=== PATIENT | female | born 1985 | race African-American/Black ===

== ENCOUNTER 2018-05-29 13:23 | Inpatient (IN) | payer OTHER ==
--- NOTE | 2018-05-29 14:32 | HP ---
Past Medical History - Primary Care Physician PCP:: Jose Manuel Arthur - Admission Chief Complaint: sterlization History of Present Illness: 32 yo f requesting tubal ligation , aware procedure is permanent, and has small failure risks , risks of ectopic , and not reversiable, also risks of procedure discussed History Source: Patient Limitations to Obtaining History: No Limitations - Past Medical History ...: 2 ...Para: 2 - Past Surgical History Hx Myomectomy: No Hx Transabdominal Cerclage: No - Smoking History Smoking history: Never smoked Have you smoked in the past 12 months: No - Alcohol/Substance Use Hx Alcohol Use: No - Social History History of Recent Travel: No Home Medications - Allergies Allergies/Adverse Reactions: Allergies Allergy/AdvReac Type Severity Reaction Status Date / Time Penicillins Allergy Intermediate Rash Verified 11/23/13 14:30 - Home Medications Home Medications: Ambulatory Orders Vitamins (Sjr) - 1 tab PO DAILY #0 tablet 02/21/15 Review of Systems - Review of Systems Constitutional: reports: No Symptoms Eyes: reports: No Symptoms HENT: reports: No Symptoms Neck: reports: No Symptoms Cardiovascular: reports: No Symptoms Respiratory: reports: No Symptoms Gastrointestinal: reports: No Symptoms Genitourinary: reports: No Symptoms Breasts: reports: No Symptoms Reported Integumentary: reports: No Symptoms Neurological: reports: No Symptoms Endocrine: reports: No Symptoms Hematology/Lymphatic: reports: No Symptoms Psychiatric: reports: No Symptoms Physical Exam-IGNITION EXPERT Constitutional: Yes: Well Nourished, No Distress, Calm Eyes: Yes: WNL, Conjunctiva Clear, EOM Intact HENT: Yes: WNL, Atraumatic, Normocephalic Neck: Yes: WNL, Supple, Trachea Midline Cardiovascular: Yes: WNL, Regular Rate and Rhythm Respiratory: Yes: WNL, Regular, CTA Bilaterally Gastrointestinal: Yes: WNL ...Rectal Exam: Yes: WNL Renal/: Yes: WNL External Genitalia: Yes: Normal Vaginal Exam: Yes: Normal Cervix: Yes: Normal Uterus: Yes: Normal Adnexa: Not Palpable: Left, Right Breast(s): Yes: WNL Musculoskeletal: Yes: WNL Extremities: Yes: WNL Edema: No Integumentary: Yes: WNL Neurological: Yes: WNL, Alert, Oriented ...Motor Strength: WNL Psychiatric: Yes: WNL, Alert, Oriented Problem List - Problem (1) Admission for sterilization Code(s): Z30.2 - ENCOUNTER FOR STERILIZATION Assessment/Plan laparoscpic tubal fulgration
[2018-05-29 16:05] VITALS: BMI 57.2
[2018-05-29] MEDS ORDERED: CLINDAMYCIN PHOSPHATE 600 MG/4 ML VIAL ONE ×2 (16:10→21:46)
[2018-05-29] MEDS ORDERED: DEXTROSE 5%-LACTATED RINGERS 1,000 ML IV SCH (16:15)
[2018-05-29] MEDS ORDERED: BUTORPHANOL TARTRATE 1 MG/ML VIAL IVPUSH ONE (16:15)
[2018-05-29] MEDS ORDERED: PROMETHAZINE HCL 25 MG/1 ML VIAL IVPB ONE (16:15)
[2018-05-29] MEDS: CLINDAMYCIN 900 MG PREMIX IVPB 900 MG/50 ML BAG IVPB ONE ×2 (16:20→16:30)
[2018-05-29] MEDS ORDERED: PROMETHAZINE HCL 25 MG/1 ML VIAL ONE ×2 (16:21→23:16)
[2018-05-29] MEDS ORDERED: BUTORPHANOL TARTRATE 1 MG/ML VIAL ONE ×4 (16:21→23:16)
--- NOTE | 2018-05-29 16:24 | HP ---
Past Medical History - Primary Care Physician PCP:: Jose Manuel Arthur - Admission Chief Complaint: post date for cervidil induction History of Present Illness: 32 yo f g6 p 3023 40.3 weeks, admitted for cervidil induction,Risks discussed , cx 1 cm 50 vx -3 mi, fhr cat 1, History Source: Patient Limitations to Obtaining History: No Limitations - Past Medical History ...: 6 ...Para: 3 ...Term: 3 ...: 1 ...Spon : 1 ...Induced : 0 ...Multiple Gestation: 0 ...LMP: 08/19/17 ... Weeks Gestation by Dates: 40.3 ...EDC by Dates: 05/26/18 ...EDC by Sono: 05/26/18 - Past Surgical History Hx Myomectomy: No Hx Transabdominal Cerclage: No - Smoking History Smoking history: Never smoked Have you smoked in the past 12 months: No - Alcohol/Substance Use Hx Alcohol Use: No - Social History History of Recent Travel: No Home Medications - Allergies Allergies/Adverse Reactions: Allergies Allergy/AdvReac Type Severity Reaction Status Date / Time Penicillins Allergy Intermediate Rash Verified 11/23/13 14:30 - Home Medications Home Medications: Ambulatory Orders Vitamins (Sjr) - 1 tab PO DAILY #0 tablet 02/21/15 Review of Systems - Review of Systems Constitutional: reports: No Symptoms Eyes: reports: No Symptoms HENT: reports: No Symptoms Neck: reports: No Symptoms Cardiovascular: reports: No Symptoms Respiratory: reports: No Symptoms Gastrointestinal: reports: No Symptoms Genitourinary: reports: No Symptoms Breasts: reports: No Symptoms Reported Musculoskeletal: reports: No Symptoms Integumentary: reports: No Symptoms Neurological: reports: No Symptoms Endocrine: reports: No Symptoms Hematology/Lymphatic: reports: No Symptoms Psychiatric: reports: No Symptoms Physical Exam - Maternity Vital Signs: Vital Signs Temperature 97.8 F 05/29/18 14:45 Pulse Rate 79 05/29/18 14:45 Respiratory Rate 17 05/29/18 14:45 Blood Pressure 122/62 05/29/18 14:45 O2 Sat by Pulse Oximetry (%) Constitutional: Yes: Well Nourished, No Distress, Calm Eyes: Yes: WNL, Conjunctiva Clear, EOM Intact HENT: Yes: WNL, Atraumatic, Normocephalic Neck: Yes: WNL, Supple, Trachea Midline Cardiovascular: Yes: WNL, Regular Rate and Rhythm Breast(s): Yes: WNL - Abdominal Exam/OB Fundal Height: 40 Number of Fetuses: Single Presentation: Vertex Contractions: No Intensity: Unaware Monitor Mode: External Heart Rate Location: [facility] Category: I Accelerations: Uniform - Vaginal Exam/OB Vaginal Bleediing: No Speculum Exam: No Dilatation (cm): 1 cm Effacement (%): 50 Amniotic Membrane Status: Intact Presentation: Vertex/Position Station: -3 - Physical Exam Edema: LUE: Trace, RUE: Trace, LLE: 1+, RLE: 1+ Deep Tendon Reflex Grade: Normal +2 ...Motor Strength: WNL Psychiatric: Yes: WNL Hemorrhage Risk Assessment - Risk Factors Medium Risk Factors: Yes: Obesity (BMI >40) Risk Score: 1 Risk Level: Medium Risk Problem List - Problems (1) Admission for sterilization Code(s): Z30.2 - ENCOUNTER FOR STERILIZATION (2) Post term over 40 weeks Code(s): O48.0 - POST-TERM (3) Elective induction of labor planned Code(s): [id number] - (4) Morbid obesity Code(s): E66.01 - MORBID (SEVERE) OBESITY DUE TO EXCESS CALORIES Assessment/Plan admit, fh monitoring, DVT prophylaxis, cervidil induction
[2018-05-29 17:29] LABS: BASO % 0.2 % (0-2.0); EOS % 0.8 % (0-4.5); HEMATOCRIT 38.2 % (32.4-45.2); HEMOGLOBIN 12.7 GM/dL (10.7-15.3); LYMPH % 22.4 % (8-40); MCH 29.2 pg (25.7-33.7); MCHC 33.1 g/dl (32.0-36.0); MEAN CELL VOLUME 88.3 fl (80-96); MEAN PLT VOLUME 11.8 fl (7.5-11.1); MONO % 5.3 % (3.8-10.2); NEUT % 71.3 % (42.8-82.8); PLATELET COUNT 177 K/MM3 (134-434); RBC 4.33 M/mm3 (3.60-5.2); RDW 13.3 % (11.6-15.6); RETICULOCYTES 2.15 % (0.5-1.5); WHITE BLOOD COUNT 11.6 K/mm3 (4.0-10.0)
[2018-05-29 17:48] LABS: INR 0.96 (0.83-1.09); PROTHROMBIN TIME (PATIENT) 10.9 SEC (9.7-13.0)
[2018-05-29 17:51] LABS: ACTIVATED PTT 22.6 SECONDS (25.2-36.5)
[2018-05-29 18:02] LABS: ALBUMIN 2.9 g/dl (3.4-5.0); CALCIUM 9.6 mg/dL (8.5-10.1); CHLORIDE 106 mmol/L (98-107); SODIUM 139 mmol/L (136-145)
[2018-05-29 18:07] LABS: ALK PHOS 104 U/L (45-117); ANION GAP 11 (8-16); BILIRUBIN,TOTAL 0.3 mg/dL (0.2-1.0); BLOOD UREA NITROGEN 8 mg/dL (7-18); CO2 22 mmol/L (21-32); CREATININE 0.5 mg/dL (0.55-1.02); GAMMA GLUTAMYL TRANSPEPTIDASE 38 U/L (5-85); GLUCOSE,RANDOM 74 mg/dL (74-106); SGOT/AST 18 U/L (15-37); SGPT/ALT 22 U/L (12-78); TOT PROT 6.9 g/dl (6.4-8.2)
[2018-05-29] MEDS: CLINDAMYCIN 600MG PREMIX IVPB 600 MG/50 ML BAG IVPB SCH (21:30)
[2018-05-29] MEDS ORDERED: OXYTOCIN 30 UNITS in 0.9% NS 30 UNIT/500 ML INFUS.BAG IVPB SCH (21:45)
--- NOTE | 2018-05-29 21:45 | PN ---
Progress Note (short form) - Note Progress Note: cx 3 cm 80 vx -2, fhr cat 1, irregular contraction , cervidil removed , will start pitocin Problem List - Problems (1) Admission for sterilization Code(s): Z30.2 - ENCOUNTER FOR STERILIZATION (2) Post term over 40 weeks Code(s): O48.0 - POST-TERM (3) Elective induction of labor planned Code(s): [id number] - (4) Morbid obesity Code(s): E66.01 - MORBID (SEVERE) OBESITY DUE TO EXCESS CALORIES
[2018-05-29] MEDS ORDERED: BUTORPHANOL TARTRATE 1 MG/ML VIAL IVPUSH PRN (21:47)
[2018-05-29] MEDS ORDERED: OXYTOCIN 30 UNITS in 0.9% NS 30 UNIT/500 ML INFUS.BAG IVPB ONE (21:47)
[2018-05-29] MEDS ORDERED: PROMETHAZINE HCL 25 MG/1 ML VIAL IVPUSH ONE (21:47)
[2018-05-29 22:03] LABS: URINE APPEARANCE SLCLOUDY; URINE BILIRUBIN NEGATIVE (<2.0 mg/dL); URINE COLOR DKYELLOW; URINE GLUCOSE (UA) NEGATIVE (NEGATIVE); URINE KETONE 1+ (NEGATIVE); URINE LEUK ESTERASE NEGATIVE (NEGATIVE); URINE NITRITE NEGATIVE (NEGATIVE); URINE UROBILINOGEN NEGATIVE mg/dL (0.2-1.0)
[2018-05-29 22:07] LABS: URINE PROTEIN 1+ (NEGATIVE)
[2018-05-29 22:09] LABS: EPI CELLS RARE /HPF (FEW); URINE BACTERIA RARE /hpf (NONE SEEN); URINE MUCUS FEW
--- NOTE | 2018-05-30 02:22 | PN ---
Progress Note (short form) - Note Progress Note: cx 5 cm 80 vx -2 mi, fhr cat1, arom ,cler fluid Problem List - Problems (1) Admission for sterilization Code(s): Z30.2 - ENCOUNTER FOR STERILIZATION (2) Post term over 40 weeks Code(s): O48.0 - POST-TERM (3) Elective induction of labor planned Code(s): [id number] - (4) Morbid obesity Code(s): E66.01 - MORBID (SEVERE) OBESITY DUE TO EXCESS CALORIES
[2018-05-30] MEDS ORDERED: CLINDAMYCIN PHOSPHATE 600 MG/4 ML VIAL ONE (02:51)
[2018-05-30] MEDS ORDERED: PROMETHAZINE HCL 25 MG/1 ML VIAL ONE (02:52)
[2018-05-30] MEDS ORDERED: BUTORPHANOL TARTRATE 1 MG/ML VIAL ONE ×2 (02:52)
[2018-05-30] MEDS ORDERED: BUTORPHANOL TARTRATE 1 MG/ML VIAL IVPB ONE (03:00)
[2018-05-30] MEDS: CLINDAMYCIN 600MG PREMIX IVPB 600 MG/50 ML BAG IVPB SCH (03:00)
[2018-05-30] MEDS ORDERED: PROMETHAZINE HCL 25 MG/1 ML VIAL IVPB ONE (03:00)
[2018-05-30] MEDS ORDERED: OXYTOCIN 20 UNITS in 0.9% NS 20 UNIT/1,000 ML INFUS.BAG IV ONE ×2 (04:28→06:00)
[2018-05-30] MEDS ORDERED: LIDOCAINE HCL 1% PRESERVATIVE FREE - 30ML VIAL ONE (04:29)
[2018-05-30] MEDS ORDERED: BENZOCAINE 20% 57 GM BOTTLE TP PRN (05:14)
[2018-05-30] MEDS ORDERED: WITCH HAZEL 50% (TUCKS) 40 PAD/JAR PAD TP PRN (05:14)
[2018-05-30] MEDS ORDERED: BENZOCAINE 28 GM HEMORRHOIDAL OINTMENT TP PRN (05:14)
[2018-05-30] MEDS ORDERED: METHYLERGONOVINE MALEATE 0.2 MG/1 ML AMP IM PRN (05:14)
[2018-05-30] MEDS ORDERED: BISACODYL 10 MG SUPP.RECT RC PRN (05:14)
[2018-05-30] MEDS ORDERED: D5W-LR W/ 20 UNITS OXYTOCIN 20 UNIT/1,000 ML INFUS.BAG IV SCH (05:15)
[2018-05-30] MEDS ORDERED: OXYTOCIN 20 UNITS in 0.9% NS 20 UNIT/1,000 ML INFUS.BAG IV SCH (05:30)
[2018-05-30] MEDS: FERROUS SO4 325 MG TABLET (FP) PO SCH ×2 (08:10→16:48)
[2018-05-30] MEDS: IBUPROFEN 600 MG TABLET (FP) PO PRN ×3 (08:10→20:35)
[2018-05-30] MEDS: PRENATAL VITAMINS W/ FOLIC ACID TABLET (FP) PO SCH (09:34)
[2018-05-30] MEDS: ACETAMINOPHEN 325 MG TABLET (FP) PO PRN (20:35)
[2018-05-31 07:10] LABS: BASO % 0.6 % (0-2.0); EOS % 2.5 % (0-4.5); HEMATOCRIT 31.5 % (32.4-45.2); HEMOGLOBIN 10.8 GM/dL (10.7-15.3); LYMPH % 29.7 % (8-40); MCH 30.3 pg (25.7-33.7); MCHC 34.3 g/dl (32.0-36.0); MEAN CELL VOLUME 88.3 fl (80-96); MEAN PLT VOLUME 10.3 fl (7.5-11.1); MONO % 5.8 % (3.8-10.2); NEUT % 61.4 % (42.8-82.8); PLATELET COUNT 154 K/MM3 (134-434); RBC 3.57 M/mm3 (3.60-5.2); RDW 13.6 % (11.6-15.6); WHITE BLOOD COUNT 10.5 K/mm3 (4.0-10.0)
[2018-05-31] MEDS: FERROUS SO4 325 MG TABLET (FP) PO SCH ×2 (09:51→17:18)
[2018-05-31] MEDS: PRENATAL VITAMINS W/ FOLIC ACID TABLET (FP) PO SCH (09:51)
[2018-05-31] MEDS ORDERED: DIPHTH,PERTUSS(ACELL),TET 0.5 ML DISP.SYRIN IM ONE (10:00)
[2018-05-31] MEDS: IBUPROFEN 600 MG TABLET (FP) PO PRN ×2 (12:13→21:02)
--- NOTE | 2018-05-31 13:47 | PN ---
Post Progress Note Post Day: 1 Type of Delivery: Vital Signs: Vital Signs Temperature 98.3 F 05/31/18 08:10 Pulse Rate 80 05/31/18 08:10 Respiratory Rate 20 05/31/18 08:10 Blood Pressure 139/64 05/31/18 08:10 O2 Sat by Pulse Oximetry (%) 100 05/30/18 07:20 Breast Exam: Yes: Soft Uterus: Yes: Fundus Firm Abdomen/GI: Yes: Abdomen soft Lochia: Yes: Rubra Lochia, amount: Small Extremities: Yes: Calves non-tender Activity: Ambulating - Labs Labs: CBC WBC 10.5 K/mm3 (4.0-10.0) H 05/31/18 06:00 RBC 3.57 M/mm3 (3.60-5.2) L 05/31/18 06:00 Hgb 10.8 GM/dL (10.7-15.3) 05/31/18 06:00 Hct 31.5 % (32.4-45.2) L D 05/31/18 06:00 MCV 88.3 fl (80-96) 05/31/18 06:00 MCH 30.3 pg (25.7-33.7) 05/31/18 06:00 MCHC 34.3 g/dl (32.0-36.0) 05/31/18 06:00 RDW 13.6 % (11.6-15.6) 05/31/18 06:00 Plt Count 154 K/MM3 (134-434) 05/31/18 06:00 MPV 10.3 fl (7.5-11.1) D 05/31/18 06:00 Absolute Neuts (auto) 6.4 # 05/31/18 06:00 Neutrophils % 61.4 % (42.8-82.8) 05/31/18 06:00 Lymphocytes % 29.7 % (8-40) D 05/31/18 06:00 Monocytes % 5.8 % (3.8-10.2) 05/31/18 06:00 Eosinophils % 2.5 % (0-4.5) D 05/31/18 06:00 Basophils % 0.6 % (0-2.0) 05/31/18 06:00 Nucleated RBC % 0 % (0-0) 05/31/18 06:00 Retic Count 2.15 % (0.5-1.5) H 05/29/18 16:30 Haptoglobin 228 mg/dL (34-200) H 05/29/18 16:30 Problem List - Problems (1) Vaginal delivery Assessment/Plan: Pt PPD#1 s/p doing well breast and bottle feeding undecided about contraception NPV x 6 weeks vitamins while breast feeding advised to schedule pp visit in 4-6 weeks plan for discharge tomorrow if continues to do wel Dr. Rojas
[2018-05-31] MEDS: ACETAMINOPHEN 325 MG TABLET (FP) PO PRN (21:02)
[2018-05-31] MEDS ORDERED: SENNOSIDES/DOCUSATE COMBO (SENNA PLUS) TABLET (UD) PO PRN (22:00)
[2018-06-01 08:43] VITALS: BP 139/68; PULSE 85; TEMP 98.1
[2018-06-01] MEDS: FERROUS SO4 325 MG TABLET (FP) PO SCH (09:10)
[2018-06-01] MEDS: IBUPROFEN 600 MG TABLET (FP) PO PRN (09:10)
[2018-06-01] MEDS: PRENATAL VITAMINS W/ FOLIC ACID TABLET (FP) PO SCH (09:10)
--- NOTE | 2018-06-02 17:52 | DS ---
Physical Exam-CAST IRON DIPPER Vital Signs: Vital Signs Temperature 98.1 F 06/01/18 08:42 Pulse Rate 85 06/01/18 08:42 Respiratory Rate 20 06/01/18 08:42 Blood Pressure 139/68 06/01/18 08:42 O2 Sat by Pulse Oximetry (%) 100 05/30/18 07:20 Constitutional: Yes: Well Nourished, No Distress, Calm Eyes: Yes: WNL, Conjunctiva Clear, EOM Intact HENT: Yes: WNL, Atraumatic, Normocephalic Neck: Yes: WNL, Supple, Trachea Midline Cardiovascular: Yes: WNL, Regular Rate and Rhythm Respiratory: Yes: WNL, Regular, CTA Bilaterally Gastrointestinal: Yes: WNL ...Rectal Exam: Yes: WNL Renal/: Yes: WNL ....Post : Yes: Uterus firm, Uterus non-tender, Slight lochia rubra Breast(s): Yes: WNL Musculoskeletal: Yes: WNL Extremities: Yes: WNL Edema: No Integumentary: Yes: WNL Neurological: Yes: WNL, Alert, Oriented ...Motor Strength: WNL Psychiatric: Yes: WNL, Alert, Oriented Labs: CBC, BMP 05/31/18 06:00 05/29/18 16:30 Delivery - Delivery Vaginal Delivery: Spontaneous (no complication) Type of Anesthesia: None Episiotomy/Laceration: None EBL (cc): 300 Delivery, Single - Stages of Labor Date 1st Stage Initiatied: 05/29/18 Time 1st Stage Initiated: 16:50 Date 2nd Stage Initiated: 05/30/18 Time 2nd Stage Initiated: 04:45 Date of Delivery: 05/30/18 Time of Delivery: 05:01 Time Placenta Delivered: 05:10 Placenta: Yes: Spontaneous - Condition of Infant Bicycle Rental Clerk/Patents Examiner Present: No Infant Gender: Female Weight: 7 lb 5 oz Position: Left, OA Total Hours ROM (Hrs/Mins): 2 HOURS/ 51 MINUTES - 1 Minute Total Score: 9 5 Minutes Total Score: 9 - Blue Feeding Plan Initial Plan: Exclusive throughout hospitalization Discharge Summary Reason For Visit: INDUCTION Procedures: Principal: Hospital Course: no complication Condition: Good - Instructions Diet, Activity, Other Instructions: Physical activity Resume your normal everyday activity as tolerated no heavy lifting or exercise until seen by your surgeon. You may walk unlimited kristy of and climb stairs. You may resume driving the car when you feel safe and comfortable behind the wheel. No sexual activity as instructed. Wound care If you have a bandage, leave it on, and keep dry for 48-72 hours. After that time discard the outer bandage. If they are tapes on the skin under the out of bandage leave them in place. They will peel off in the next 7 to 10 days. Do Not Peel them off. You may shower the day after surgery. If there are tapes present on the skin, you may shower over them. Diet There are no dietary restrictions. Eat healthy, high-fiber foods. Drink 6 to 8 glasses of liquid each day. This will assist in keeping your bowels are regular. Pain management You may take Tylenol or acetaminophen or Ibuprofen (for example, Motrin, Advil etc.) from my pain prescription medication is ordered should be taken as prescribed for moderate to severe pain. Call MD for any of the following: Severe pain not relieved by medication Fever of 101 or higher Excessive bleeding or drainage on dressing Inability to urinate Referrals: [facility] (Nitza Carrera) [Outside] Disposition: HOME - Home Medications Comprehensive Discharge Medication List: Ambulatory Orders Vitamins (Sjr) - 1 tab PO DAILY #0 tablet 02/21/15 Ferrous Sulfate 325 mg PO DAILY 05/29/18 Ibuprofen [Ibu] 800 mg PO TID PRN 10 Days #40 tablet 05/31/18
== END 2018-06-01 11:45 | disposition home or self-care (01) | DRG 560 ==
LOC: JDEL 13:23 → JLDR 14:45 → J3W 05-30 08:02
PROVIDERS: ADMIT Obstetrics & Gynecology; ATTEND Obstetrics & Gynecology
PROC: 3E0P7VZ Introduction of Hormone into Female Reproductive, Via Natural or Artificial Opening (ICD-10-PCS; 2018-05-29)
PROC: 10E0XZZ Delivery of Products of Conception, External Approach (ICD-10-PCS; principal; 2018-05-30)
DX: O48.0 Post-term pregnancy (principal); Z3A.40 40 weeks gestation of pregnancy; O99.214 Obesity complicating childbirth; E66.01 Morbid (severe) obesity due to excess calories; Z68.43 Body mass index [BMI] 50.0-59.9, adult; Z37.0 Single live birth
CPT/HCPCS: 36415; 59409; 80053; 81003; 81015; 82977; 83010; 84550; 85025; 85044; 85610; 85730; 86593; 86850; 86900; 86901; 90715

== ENCOUNTER 2019-12-14 14:15 | Inpatient (IN) | payer OTHER ==
[2019-12-14] MEDS: ELECTROLYTE-148 SOLN 1,000 ML IV SCH (14:50)
[2019-12-14] MEDS ORDERED: hydrALAZINE HCL 20 MG/ML VIAL ONE (15:17)
[2019-12-14] MEDS ORDERED: hydrALAZINE HCL 20 MG/ML VIAL IVPUSH ONE (15:20)
[2019-12-14 15:25] VITALS: BMI 58.2
[2019-12-14] MEDS ORDERED: OXYTOCIN 20 UNITS in 0.9% NS 20 UNIT/1,000 ML INFUS.BAG IV ONE ×2 (15:39→16:56)
[2019-12-14] MEDS ORDERED: morphine SULFATE/PF 0.5 MG/ML (2cc Syringe - QUVA) ONE (15:40)
--- NOTE | 2019-12-14 15:40 | PN ---
Progress Note (short form) - Note Progress Note: Stat section approximately 5-10mins ago
[2019-12-14] MEDS ORDERED: PROPOFOL 20 ML ONE ×2 (15:45)
[2019-12-14] MEDS ORDERED: OXYTOCIN 10 UNITS/ML VIAL ONE (15:51)
[2019-12-14 16:06] LABS: BASO % 0.9 % (0-2.0); EOS % 0.6 % (0-4.5); HEMATOCRIT 39.6 % (32.4-45.2); HEMOGLOBIN 12.9 GM/dL (10.7-15.3); LYMPH % 17.9 % (8-40); MCH 29.8 pg (25.7-33.7); MCHC 32.6 g/dl (32.0-36.0); MEAN CELL VOLUME 91.5 fl (80-96); MEAN PLT VOLUME 11.7 fl (7.5-11.1); MONO % 7.2 % (3.8-10.2); NEUT % 73.4 % (42.8-82.8); PLATELET COUNT 179 K/MM3 (134-434); RBC 4.33 M/mm3 (3.60-5.2); RDW 13.5 % (11.6-15.6); RETICULOCYTES 1.77 % (0.5-1.5); WHITE BLOOD COUNT 18.9 K/mm3 (4.0-10.0)
[2019-12-14 16:30] LABS: BLOOD UREA NITROGEN 4.7 mg/dL (7-18); CALCIUM 9.4 mg/dL (8.5-10.1); CREATININE 0.6 mg/dL (0.55-1.3); POTASSIUM 4.1 mmol/L (3.5-5.1); URIC ACID 4.4 mg/dL (2.6-7.2)
[2019-12-14 16:43] LABS: INR 0.91 (0.83-1.09); PROTHROMBIN TIME (PATIENT) 10.7 SEC (9.7-13.0)
[2019-12-14 16:46] LABS: ACTIVATED PTT 27.6 SECONDS (25.2-36.5)
[2019-12-14] MEDS ORDERED: CITRIC ACID/SODIUM CITRATE 30 ML UNIT-DOSE CUP PO ONE ×2 (16:46→17:05)
--- NOTE | 2019-12-14 16:51 | HP ---
Past Medical History - Primary Care Physician PCP:: Abdullahi Culp (late entry) - Admission Chief Complaint: Labor pain History of Present Illness: Patient is a chornic hypertensive on PO antihypertensive who presents with labor pains that started at 6am today and progressively worsened. BP was labile in mild to sever range. She denies LOF, VB, and reports +FM. Patient reports nausea and denies VALENCIA, vision changes, CP, SOB, leg swelling, and RUQ pain History Source: Patient Limitations to Obtaining History: No Limitations - Past Medical History DOCENT COORDINATOR: No: Alzheimer's, CVA, Dementia, Migraine, Multiple Sclerosis, Peripheral Neuropathy, Parkinson's, Seizure, Syncope, TIA, Vertigo, Other Cardiovascular: Yes: HTN Pulmonary: No: Asthma, Bronchitis, Cancer, COPD, O2 Dependent, Pneumonia, Previously Intubated, Pulmonary Embolus, Pulmonary Fibrosis, Sleep Apnea, Other Gastrointestinal: Yes: Ulcerative Colitis Hepatobiliary: No: Cirrhosis, Cholelithiasis, Cholecystitis, Choledocholithiasis , Hepatitis A, Hepatitis B, Hepatitis C, Other Renal/: No: Renal Failure, Renal Inusuff, BPH, Cancer, Hematuria, Hemodialysis , Neurogenic Bladder, Renal Calculi, UTI, Other Reproductive: No: Ectopic , Endometriosis, Fibroids, PID, Polycystic Ovary Syndrome, Postmenopausal, Other ...: 7 ...Para: 5 ...Term: 4 ...: 1 ...Spon : 1 ...Induced : 0 ...Multiple Gestation: 0 ...LMP: 03/05/19 ... Weeks Gestation by Dates: 40.4 ...EDC by Dates: 12/10/19 ...EDC by Sono: 12/20/19 Heme/Onc: No: Anemia, B12 Deficiency, Bleeding Disorder, Cancer, Current Chemotherapy, Current Radiation Therapy, Hemochromatosis, Hypercoaguable State, Myeloproliferative Synd, Sickle Cell Disease, Sickle Cell Trait, Thrombocytopenia, Other Infectious Disease: Yes: Other (H/O herpes) Psych: No: Addictions, Anxiety, Bipolar, Depression, Panic, Psychosis, Schizophrenia, Other Musculoskeletal: No: Bursitis, Chronic low back pain, Hemiparesis, Hemiplegia, Osteoarthritis, Paraplegia, Other Rheumatology: No: Fibromyalgia, Gout, Lupus, Rheumatoid Arthritis, Sarcoidosis, Vasculitis, Other ENT: No: Allergic Rhinitis, Sinusitis, Other Endocrine: No: Luigi's Disease, [place]'s Disease, Diabetes Insipidus, Diabetes Mellitus, Hyperparathyroidism, Hyperthyroidism, Hypothyroidism, Osteopenia, SIADH, Other Dermatology: No: Basal Cell, Cellulitis, Eczema, Melanoma, Psoriasis, Squamous Cell, Other - Past Surgical History Past Surgical History: Yes: Cholecystectomy Hx Myomectomy: No Hx Transabdominal Cerclage: No - Smoking History Smoking history: Never smoked Have you smoked in the past 12 months: No - Alcohol/Substance Use Hx Alcohol Use: No - Social History History of Recent Travel: No Home Medications - Allergies Allergies/Adverse Reactions: Allergies Allergy/AdvReac Type Severity Reaction Status Date / Time Penicillins Allergy Intermediate Hives Verified 12/14/19 17:17 - Home Medications Home Medications: Ambulatory Orders Vitamins (Sjr) - 1 tab PO DAILY #0 tablet 02/21/15 Ferrous Sulfate 325 mg PO DAILY 05/29/18 Nifedipine [Procardia Xl] 30 mg PO DAILY 12/14/19 Valacyclovir HCl [Valtrex] 500 mg PO BID 12/14/19 Family Medical History Family History: Unable to Obtain Review of Systems - Review of Systems Constitutional: reports: No Symptoms Eyes: reports: No Symptoms HENT: reports: No Symptoms Neck: reports: No Symptoms Cardiovascular: reports: No Symptoms Respiratory: reports: No Symptoms Gastrointestinal: reports: Nausea Genitourinary: reports: No Symptoms Breasts: reports: No Symptoms Reported Musculoskeletal: reports: No Symptoms Integumentary: reports: No Symptoms Neurological: reports: No Symptoms Endocrine: reports: No Symptoms Hematology/Lymphatic: reports: No Symptoms Psychiatric: reports: No Symptoms Physical Exam - Maternity Vital Signs: Vital Signs Temperature 98.1 F 12/14/19 15:01 Pulse Rate 117 H 12/14/19 15:01 Respiratory Rate 12/14/19 15:01 Blood Pressure 148/99 12/14/19 15:01 O2 Sat by Pulse Oximetry (%) Constitutional: Yes: Well Nourished, Mild Distress (due to labor pain) HENT: Yes: Atraumatic Neck: Yes: Supple Cardiovascular: Yes: Tachycardia - Abdominal Exam/OB Number of Fetuses: Single Presentation: Vertex Contractions: Yes Regularity: Regular Monitor Mode: Internal Heart Rate (range): 140 Category: II Accelerations: Uniform (moderate variability present) Decelerations: Late (2 subtle) - Vaginal Exam/OB Vaginal Bleediing: No Speculum Exam: Yes (no lesions, no blood noted) Dilatation (cm): 6 Effacement (%): 70 Amniotic Membrane Status: Intact Presentation: Vertex/Position Station: -3 - Physical Exam Musculoskeletal: Yes: WNL Extremities: Yes: WNL Edema: Yes Edema: LLE: Trace, RLE: Trace Integumentary: Yes: WNL Deep Tendon Reflex Grade: Normal +2 ...Motor Strength: WNL Psychiatric: Yes: Alert, Oriented - Labs Lab Results: CBC, BMP 12/14/19 15:30 12/14/19 15:30 Imaging - Results Ultrasound: Report Reviewed Problem List - Problems (1) Hypertension affecting in third trimester Code(s): O16.3 - UNSPECIFIED MATERNAL HYPERTENSION, THIRD TRIMESTER (2) Morbid obesity Code(s): E66.01 - MORBID (SEVERE) OBESITY DUE TO EXCESS CALORIES (3) distress Code(s): [id number] - Assessment/Plan 34 y/o @ 39.3 wks presenting with labor pain since 6am today that has progressively worsened. BP in severe range with FHT cat II with 2 initial late decels and moderate variability. Patient is morbidly obese and FSE placed at 3: 05 PM due to inability to monitored continuously. AROM revealed thick meconium stained amniotic fluid. Patient requested pain control. -Admission -Stat PEc labs -Continuous monitoring - IV antihypertensive -NICU and anesthesia made aware
[2019-12-14] MEDS: OXYTOCIN 20 UNITS in 0.9% NS 20 UNIT/1,000 ML INFUS.BAG IV SCH (17:15)
[2019-12-14] MEDS ORDERED: ONDANSETRON 4 MG/2 ML VIAL IVPUSH PRN (17:27)
[2019-12-14 18:02] LABS: COCAINE, UR NEGATIVE ng/ml (CUTOFF=300); METHADONE, UR NEGATIVE ng/ml (CUTOFF=300); OPIATES, URI NEGATIVE ng/ml (CUTOFF=300); PHENCYCLIDINE,URINE NEGATIVE ng/ml (CUTOFF=25); URINE AMPHETAMINES NEGATIVE ng/ml (CUTOFF=500); URINE BARBITURATES NEGATIVE ng/ml (CUTOFF=200); URINE BENZODIAZEPINES NEGATIVE ng/ml (CUTOFF=200)
--- NOTE | 2019-12-14 18:44 | PN ---
Ante-Partal Exam - Subjective Subjective: Late entry: Patient re-evaluated for prolonged decelerations for approximately 4 mins down to 80's shortly after AROM performed. Vital Signs: Vital Signs Temperature 98.5 F 12/14/19 16:50 Pulse Rate 104 H 12/14/19 17:30 Respiratory Rate 23 H 12/14/19 17:30 Blood Pressure 132/54 L 12/14/19 17:30 O2 Sat by Pulse Oximetry (%) 99 12/14/19 17:30 BP in severe range Bleeding: No Headache: No Visual changes: No Right upper quadrant pain: No - Contractions Contractions: Yes Regularity: Regular Monitor Mode: External - Exam during Labor Heart Rate: 80 (recovered with intrauterine resucitation efforts) Variability: Minimal Category: II Monitor Accelerations: Present Monitor Decelerations: Prolonged Exam: Vaginal Dilatation (cm): 6 Effacement (%): 7- Amniotic Membrane Status: Ruptured Amniotic Fluid: Meconium Stained Meconium Staining: Thick Presentation: Vertex Station: -3 Remarks: FSE in place - Assessment/Plan Assessment/Plan: 34 y/o @ 39.3wks, no OB CHTN, severe HTN and FHT cat II, S/P prolonged decel and FSE in place. FHT recovered with intrauterine resuscitation efforts. Patient counseled at bedside regarding situation. Need for IV antihypertensive explained and discussion regarding VD vs CD carried out. Patient desires a trial of labor. She expressed understanding regarding the possibility of worsening status an need for emergent CD with this decision. -IV hydralazine 5mg administered at 3:20pm -Continuous monitoring -OR staff, NICU and anesthesia aware of situation -Labs pending.
[2019-12-14] MEDS ORDERED: oxyCODONE HCL 5 MG TABLET PO PRN (19:08)
[2019-12-14] MEDS: IBUPROFEN 800 MG/8 ML IJ IVPB PRN (19:15)
--- NOTE | 2019-12-14 19:24 | PN ---
Progress Note (short form) - Note Progress Note: Late entry: Patient evaluated for prolonged deceleration for approximately 7 minutes that recovered to 150's with intrauterine resuscitation. BP still in the severe range despite IV antihypertensive. Cervical exam 8/80/-3, FSE in place remote form delivery. Patient counseled regarding Emergent stat CS following FHT recovery. Patient was brought to the OR expeditiously. Problem List - Problems (1) Hypertension affecting in third trimester Code(s): O16.3 - UNSPECIFIED MATERNAL HYPERTENSION, THIRD TRIMESTER (2) Morbid obesity Code(s): E66.01 - MORBID (SEVERE) OBESITY DUE TO EXCESS CALORIES (3) distress Code(s): [id number] -
--- NOTE | 2019-12-14 19:38 | OP ---
Operative Note - Note: Operative Date: 12/14/19 (dic# [id number]) Pre-Operative Diagnosis: 34 y/o multiparous female @ 39.3wks, CHTN exacerbation with severe range BP, distress, remote from delivery Operation: Emergent PTLCS Findings: see dictation Post-Operative Diagnosis: Same as Pre-op Surgeon: Abdullahi Culp Joiner Helper: Jv Simpson Anesthesia: Spinal Estimated Blood Loss (mls): 900 Operative Report Dictated: Yes
[2019-12-14] MEDS ORDERED: morphine SULFATE 4 MG/ML VIAL IVPUSH PRN (19:40)
[2019-12-14] MEDS: HEPARIN NA (PORCINE) 5,000 UNITS/ML 1ML VIAL SQ SCH (22:09)
[2019-12-14] MEDS: CEFAZOLIN 1 GM/D5W 1 GM/50 ML BAG IVPB SCH (23:22)
--- NOTE | 2019-12-15 00:31 | OP ---
DATE OF OPERATION: 12/14/2019 PREOPERATIVE DIAGNOSIS: This is a 34-year-old grand multiparous female at 39 weeks and 3 days of gestation, chronic hypertensive with exacerbation, blood pressure in the severe range, distress, remote from delivery. POSTOPERATIVE DIAGNOSIS: This is a 34-year-old grand multiparous female at 39 weeks and 3 days of gestation, chronic hypertensive with exacerbation, blood pressure in the severe range, distress, remote from delivery. PROCEDURE: Emergent stat section. SURGEON: Dean Vieyra MD. PATIENT OBSERVATION ASSISTANT: NANDO Matamoros. ANESTHESIA: Spinal. ESTIMATED BLOOD LOSS: Per the facility. INTRAVENOUS FLUIDS: 900 mL of crystalloid. URINE OUTPUT: Clear. INTRAVENOUS: Per Anesthesia. COMPLICATIONS: Cervical uterine extension posteriorly. INTRAOPERATIVE FINDINGS: Morbidly obese patient with pronounced pannus and subcutaneous adipose tissue. Fascia and rectus muscles were consistent with normal anatomy. Lower uterine segment was effaced. Infant in cephalic presentation OA, occult cord, jonathan thick meconium-stained fluid. Bilateral tubes and ovaries consistent with normal anatomy. Uterine extension posteriorly involving lower uterine segment. Bladder dome and rectus muscle fascia interface without evidence of trauma. DESCRIPTION OF PROCEDURE: The patient was taken to the operating room in a stat fashion. She was prepped with Betadine emergently following expeditious spinal regional anesthesia. Timeout took place. A skin incision was made with the scalpel and carried to underlying fascia in an emergent fashion. Fascia was incised with the scalpel, and incision extended laterally with blunt and sharp dissection. Rectus muscles were bluntly in the midline, and the peritoneum was entered bluntly. Lower uterine segment incision performed with scalpel, and incision was extended laterally with blunt dissection. Thick meconium-stained amniotic fluid. The head was elevated via surgeon's head porter baggage and delivered to through the surgical incision with mild fundal pressure, umbilical cord noted along side infant's face. Umbilical cord was clamped and cut, and 's oral/nasal orifices immediately suctioned out and brought to the NICU staff. Samples for gas and the blood were obtained. The placenta was delivered manually and intact with no evidence of abruption. The initial skin incision performed at 3:50 p.m., and the infant completely delivered at 3:52 p.m. The uterus was exteriorized through the surgical incision, and extension of the lower uterine segment incision posteriorly on the left side was noted, involving the cervix. The incision edges were secured with Allis clamps and inspection in the posterior cul-de-sac took place. Laps were placed to retract any surrounding viscera. The extension was reapproximated with 1 Polysorb in running, locked fashion. Excellent reapproximation and Hemostasis for the extension was achieved. The lower uterine segment incision was reapproximated with the same suture in a running, locked fashion. Excellent structural reapproximated and hemostasis was achieved. Inspection of the broad ligament posteriorly revealed mild oozing from the incision extension, which was controlled with 3 [id number] stitches of the same suture. Excellent hemostasis was noted. The retracting laps were removed, and the uterus was internalized to the pelvic cavity. Hemostasis once again confirmed. Gutters were cleared of all clots and debris. The rectal muscle fascial interface was noted to be dry, as well as intact bladder dome. The rectus muscles were reapproximated manually and Surgicel was placed at the level of the uterine incision extension on the left side. Excellent hemostasis was noted. Fascial incision was reapproximated with 0 Polysorb running, locked sutures. Excellent structural reapproximation achieved and confirmed by digital palpation by the surgeon. Subcutaneous tissues were copiously irrigated. Bleeders neutralized with Bovie cautery. Subcutaneous tissue was reapproximated with 2-0 chromic suture. Skin incision was reapproximated with surgical art. Patient tolerated the procedure well and was brought to the recovery room in stable condition. Instrument count was reported as correct x2 by the staff. Blood pressure in the normal range. DEAN VIEYRA MD LM/[id number] [facility]
[2019-12-15] MEDS: IBUPROFEN 800 MG/8 ML IJ IVPB PRN ×2 (01:26→09:38)
[2019-12-15] MEDS: NIFEdipine E.R. 30 MG TABLET PO SCH (06:19)
[2019-12-15] MEDS: CEFAZOLIN 1 GM/D5W 1 GM/50 ML BAG IVPB SCH ×2 (07:15→15:23)
[2019-12-15 08:01] LABS: BASO % 0.2 % (0-2.0); EOS % 0.5 % (0-4.5); HEMATOCRIT 27.3 % (32.4-45.2); HEMOGLOBIN 9.2 GM/dL (10.7-15.3); LYMPH % 8.4 % (8-40); MCH 30.6 pg (25.7-33.7); MCHC 33.9 g/dl (32.0-36.0); MEAN CELL VOLUME 90.4 fl (80-96); MEAN PLT VOLUME 10.8 fl (7.5-11.1); MONO % 6.3 % (3.8-10.2); NEUT % 84.6 % (42.8-82.8); PLATELET COUNT 141 K/MM3 (134-434); RBC 3.02 M/mm3 (3.60-5.2); RDW 13.5 % (11.6-15.6); WHITE BLOOD COUNT 13.6 K/mm3 (4.0-10.0)
--- NOTE | 2019-12-15 08:13 | PN ---
Post Progress Note - Subjective Subjective: Patient reports adequate pain control, no VALENCIA, no vision changes, no CP, no SOB, no N/V, no RUQ pain, no CT. Garcia in place Post Day: 1 Type of Delivery: Primary C/S Vital Signs: Vital Signs Temperature 98.1 F 12/15/19 05:23 Pulse Rate 100 H 12/15/19 05:23 Respiratory Rate 20 12/15/19 05:23 Blood Pressure 131/62 12/15/19 05:23 O2 Sat by Pulse Oximetry (%) 99 12/14/19 17:30 Uterus: Yes: Fundus Firm Incision: Yes: Dressing dry and intact (removed), Camelia intact Abdomen/GI: Yes: Abdomen soft Lochia, amount: Moderate Extremities: Yes: Calves non-tender Activity: Other (garcia in place) - Labs Labs: CBC WBC 18.9 K/mm3 (4.0-10.0) H 12/14/19 15:30 RBC 4.33 M/mm3 (3.60-5.2) 12/14/19 15:30 Hgb 12.9 GM/dL (10.7-15.3) 12/14/19 15:30 Hct 39.6 % (32.4-45.2) D 12/14/19 15:30 MCV 91.5 fl (80-96) 12/14/19 15:30 MCH 29.8 pg (25.7-33.7) 12/14/19 15:30 MCHC 32.6 g/dl (32.0-36.0) 12/14/19 15:30 RDW 13.5 % (11.6-15.6) 12/14/19 15:30 Plt Count 179 K/MM3 (134-434) 12/14/19 15:30 MPV 11.7 fl (7.5-11.1) H D 12/14/19 15:30 Absolute Neuts (auto) 13.8 K/mm3 (1.5-8.0) H 12/14/19 15:30 Neutrophils % 73.4 % (42.8-82.8) 12/14/19 15:30 Lymphocytes % 17.9 % (8-40) D 12/14/19 15:30 Monocytes % 7.2 % (3.8-10.2) 12/14/19 15:30 Eosinophils % 0.6 % (0-4.5) 12/14/19 15:30 Basophils % 0.9 % (0-2.0) 12/14/19 15:30 Nucleated RBC % 0 % (0-0) 12/14/19 15:30 Retic Count 1.77 % (0.5-1.5) H D 12/14/19 15:30 Problem List - Problems (1) Hypertension affecting in third trimester Code(s): O16.3 - UNSPECIFIED MATERNAL HYPERTENSION, THIRD TRIMESTER (2) Morbid obesity Code(s): E66.01 - MORBID (SEVERE) OBESITY DUE TO EXCESS CALORIES (3) distress Code(s): GZR0160 - Assessment/Plan POD # 1 S/P emergent C/S for distress secondary to severe HTN. BP in normal range on Nifedipine 30mg ER, asymptomatic, PEC labs WNL. transferred to [facility]. Patient and FOB counseled regarding events associated with delivery, all questions answered. FOB to visit today. -AM labs -Continue nifedipine -Monitor BP -Encourage ambulation -D/C garcia -Continue prophylactic heparin and post-op Abx
--- NOTE | 2019-12-15 08:38 | PN ---
Progress Note (short form) - Note Progress Note: Post op day#1.S/P C section under spinal anesthesia uneventful.Patient stable and has little pain for which she is on medication.No any anesthesia related problem.Patient Dc from the anesthesia care.
[2019-12-15] MEDS: HEPARIN NA (PORCINE) 5,000 UNITS/ML 1ML VIAL SQ SCH ×2 (09:38→21:59)
[2019-12-15] MEDS: oxyCODONE HCL 5 MG TABLET PO PRN ×2 (15:19→20:11)
[2019-12-15] MEDS: ACETAMINOPHEN 325 MG TABLET (FP) PO PRN ×2 (15:20→20:12)
[2019-12-15] MEDS ORDERED: BISACODYL 10 MG SUPP.RECT RC PRN (19:08)
[2019-12-15] MEDS: OXYTOCIN 20 UNITS in 0.9% NS 20 UNIT/1,000 ML INFUS.BAG IV SCH (19:27)
[2019-12-15] MEDS: ELECTROLYTE-148 SOLN 1,000 ML IV SCH (19:27)
[2019-12-16] MEDS: IBUPROFEN 600 MG TABLET (FP) PO PRN ×4 (02:43→19:38)
[2019-12-16] MEDS: oxyCODONE HCL 5 MG TABLET PO PRN ×4 (02:43→19:38)
[2019-12-16] MEDS: ACETAMINOPHEN 325 MG TABLET (FP) PO PRN ×2 (02:43→19:38)
[2019-12-16] MEDS: NIFEdipine E.R. 30 MG TABLET PO SCH (06:23)
--- NOTE | 2019-12-16 08:28 | PN ---
Post Progress Note - Subjective Subjective: c/o pain scale 6/10 c/o gaseous discomfort bm not done Post Day: 2 Type of Delivery: Primary C/S Vital Signs: Vital Signs Temperature 98.4 F 12/15/19 20:00 Pulse Rate 101 H 12/16/19 04:00 Respiratory Rate 20 12/16/19 04:00 Blood Pressure 128/68 12/16/19 04:00 O2 Sat by Pulse Oximetry (%) 99 12/14/19 17:30 Breast Exam: Yes: Soft, Other (BF). No: Engorged Uterus: Yes: Fundus Firm, Fundus below umbilicus, Non-tender Incision: Yes: Camelia intact. No: Redness, Oozing Abdomen/GI: Yes: Abdomen soft (BS active), Abdominal Distention (morbid obese abdomen ), Passing flatus, Tolerating PO (diet). No: Tender Lochia: Yes: Rubra Lochia, amount: Moderate Extremities: Yes: Calves non-tender Perineum: Yes: Intact Activity: Ambulating - Labs Labs: CBC WBC 13.6 K/mm3 (4.0-10.0) H 12/15/19 07:20 RBC 3.02 M/mm3 (3.60-5.2) L 12/15/19 07:20 Hgb 9.2 GM/dL (10.7-15.3) L 12/15/19 07:20 Hct 27.3 % (32.4-45.2) L D 12/15/19 07:20 MCV 90.4 fl (80-96) 12/15/19 07:20 MCH 30.6 pg (25.7-33.7) 12/15/19 07:20 MCHC 33.9 g/dl (32.0-36.0) 12/15/19 07:20 RDW 13.5 % (11.6-15.6) 12/15/19 07:20 Plt Count 141 K/MM3 (134-434) D 12/15/19 07:20 MPV 10.8 fl (7.5-11.1) 12/15/19 07:20 Absolute Neuts (auto) 11.5 K/mm3 (1.5-8.0) H 12/15/19 07:20 Neutrophils % 84.6 % (42.8-82.8) H 12/15/19 07:20 Lymphocytes % 8.4 % (8-40) D 12/15/19 07:20 Monocytes % 6.3 % (3.8-10.2) 12/15/19 07:20 Eosinophils % 0.5 % (0-4.5) 12/15/19 07:20 Basophils % 0.2 % (0-2.0) 12/15/19 07:20 Nucleated RBC % 0 % (0-0) 12/15/19 07:20 Retic Count 1.77 % (0.5-1.5) H D 12/14/19 15:30 Problem List - Problems (1) Status post section routine follow-up Code(s): Z39.2 - ENCOUNTER FOR ROUTINE FOLLOW-UP; Z98.891 - HISTORY OF UTERINE SCAR FROM PREVIOUS SURGERY Assessment/Plan stable plan ; encourage ambulation, deep breathing & po fluids
[2019-12-16] MEDS: SIMETHICONE 80 MG TAB.CHEW (FP) PO PRN ×2 (08:40→19:37)
[2019-12-16] MEDS: HEPARIN NA (PORCINE) 5,000 UNITS/ML 1ML VIAL SQ SCH ×2 (10:16→21:12)
--- NOTE | 2019-12-16 17:12 | PATH ---
Surgical Pathology Report Patient Name: DANIEL YAN [facility]. Rec. 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 Electronically Signed Lani Taylor M.D. Gross Description The specimen is received fresh labeled placenta and is a 593 gram, 21.0 x 18.0 x 2.6 cm. placenta with attached membranes and umbilical cord. The attached membranes are carter green and meconium stained and insert marginally. The umbilical cord measures 25 cm. in length and averages 1 cm. in diameter. The cord inserts eccentrically, 3 cm. to the nearest margin. No true knots or strictures are identified. Cut surface of the umbilical cord reveals 3 vessels. The surface is pratt green with abundant fibrin deposition and appropriate caliber vessels. The maternal surface is red-brown with focal defects. Sectioning reveals red-brown, spongy parenchyma. No lesions are identified. Supervisor Functional Testing sections are submitted in three cassettes as follows: 1- membrane rolls and umbilical cord; 2-3- full thickness sections of placenta. 12/15/2019 [facility]/12/15/2019
[2019-12-17] MEDS: oxyCODONE HCL 5 MG TABLET PO PRN (03:48)
[2019-12-17] MEDS: ACETAMINOPHEN 325 MG TABLET (FP) PO PRN ×2 (03:48→09:15)
[2019-12-17] MEDS: SIMETHICONE 80 MG TAB.CHEW (FP) PO PRN ×2 (03:49→09:15)
[2019-12-17] MEDS: IBUPROFEN 600 MG TABLET (FP) PO PRN ×2 (03:49→09:16)
[2019-12-17] MEDS: NIFEdipine E.R. 30 MG TABLET PO SCH (06:41)
--- NOTE | 2019-12-17 08:24 | PN ---
Post Progress Note Type of Delivery: Primary C/S Vital Signs: Vital Signs Temperature 98.3 F 12/16/19 22:00 Pulse Rate 88 12/17/19 06:00 Respiratory Rate 18 12/17/19 06:00 Blood Pressure 135/68 12/17/19 06:00 O2 Sat by Pulse Oximetry (%) 99 12/14/19 17:30 Uterus: Yes: Fundus below umbilicus Incision: Yes: Dressing dry and intact, Sutures intact Abdomen/GI: Yes: Abdomen soft, Passing flatus, Tolerating PO Lochia: Yes: Rubra Lochia, amount: Small Extremities: Yes: Calves non-tender Perineum: Yes: Intact Activity: Ambulating - Labs Labs: CBC WBC 13.6 K/mm3 (4.0-10.0) H 12/15/19 07:20 RBC 3.02 M/mm3 (3.60-5.2) L 12/15/19 07:20 Hgb 9.2 GM/dL (10.7-15.3) L 12/15/19 07:20 Hct 27.3 % (32.4-45.2) L D 12/15/19 07:20 MCV 90.4 fl (80-96) 12/15/19 07:20 MCH 30.6 pg (25.7-33.7) 12/15/19 07:20 MCHC 33.9 g/dl (32.0-36.0) 12/15/19 07:20 RDW 13.5 % (11.6-15.6) 12/15/19 07:20 Plt Count 141 K/MM3 (134-434) D 12/15/19 07:20 MPV 10.8 fl (7.5-11.1) 12/15/19 07:20 Absolute Neuts (auto) 11.5 K/mm3 (1.5-8.0) H 12/15/19 07:20 Neutrophils % 84.6 % (42.8-82.8) H 12/15/19 07:20 Lymphocytes % 8.4 % (8-40) D 12/15/19 07:20 Monocytes % 6.3 % (3.8-10.2) 12/15/19 07:20 Eosinophils % 0.5 % (0-4.5) 12/15/19 07:20 Basophils % 0.2 % (0-2.0) 12/15/19 07:20 Nucleated RBC % 0 % (0-0) 12/15/19 07:20 Retic Count 1.77 % (0.5-1.5) H D 12/14/19 15:30 Haptoglobin 237 mg/dL (33-278) 12/14/19 15:30 Assessment/Plan 34yo s/p PLTCS for NRFHT, POD#3 Routine PP care PO pain control Cont HTN meds, Procardia 30XL Baby at [facility] Anticipate d/c to home today, with follow up in 5-7 days for BP check and incision check Chika Perry MD
[2019-12-17 08:35] LABS: BASO % 0.4 % (0-2.0); EOS % 3.8 % (0-4.5); HEMATOCRIT 25.6 % (32.4-45.2); HEMOGLOBIN 8.5 GM/dL (10.7-15.3); LYMPH % 13.4 % (8-40); MCH 30.1 pg (25.7-33.7); MCHC 33.2 g/dl (32.0-36.0); MEAN CELL VOLUME 90.4 fl (80-96); MONO % 5.5 % (3.8-10.2); NEUT % 76.9 % (42.8-82.8); PLATELET COUNT 218 K/MM3 (134-434); RBC 2.83 M/mm3 (3.60-5.2); RDW 13.3 % (11.6-15.6); WHITE BLOOD COUNT 11.9 K/mm3 (4.0-10.0)
--- NOTE | 2019-12-17 08:39 | DS ---
Physical Examination Vital Signs: Vital Signs Temperature 98.3 F 12/16/19 22:00 Pulse Rate 88 12/17/19 06:00 Respiratory Rate 18 12/17/19 06:00 Blood Pressure 135/68 12/17/19 06:00 O2 Sat by Pulse Oximetry (%) 99 12/14/19 17:30 Constitutional: Yes: Well Nourished, No Distress, Calm Eyes: Yes: WNL, Conjunctiva Clear, EOM Intact HENT: Yes: WNL, Atraumatic, Normocephalic Neck: Yes: WNL, Supple, Trachea Midline Cardiovascular: Yes: WNL, Regular Rate and Rhythm Respiratory: Yes: WNL, Regular, CTA Bilaterally Gastrointestinal: Yes: WNL, Normal Bowel Sounds Musculoskeletal: Yes: WNL Extremities: Yes: WNL Edema: No Integumentary: Yes: WNL Neurological: Yes: WNL, Alert, Oriented ...Motor Strength: WNL Psychiatric: Yes: WNL Labs: CBC, BMP 12/17/19 08:03 12/14/19 15:30 Discharge Summary Problems reviewed: Yes Reason For Visit: IN LABOR Current Active Problems distress (Acute) Hypertension affecting in third trimester (Acute) Status post section routine follow-up (Acute) Procedures: Principal: [facility] Hospital Course: Patient presented in labor with elevated blood pressures She had a Cat II tracing and required emergency She had an uncomplicated she met all milestones; her blood pressure normalized with Procardia She was discharged home on POD#3 Condition: Stable - Instructions Diet, Activity, Other Instructions: Please return to regular diet as tolerated. Take medications as prescribed. Follow up within a week for BP check and incision check. Referrals: Abdullahi Culp MD [Staff Physician] - Jose Manuel Arthur MD [Staff Physician] - Disposition: HOME - Home Medications Comprehensive Discharge Medication List: Ambulatory Orders Vitamins (Sjr) - 1 tab PO DAILY #0 tablet 02/21/15 Ferrous Sulfate 325 mg PO DAILY 05/29/18 Nifedipine [Procardia Xl] 30 mg PO DAILY 12/14/19 Valacyclovir HCl [Valtrex] 500 mg PO BID 12/14/19 Acetaminophen [Tylenol] 650 mg PO Q6H PRN #30 capsule MDD 5 12/16/19 Ibuprofen 600 mg PO Q6H PRN #30 tablet 12/16/19 Nifedipine ER [Procardia XL -] 30 mg PO DAILY #30 tab.er.24 12/16/19 Oxycodone HCl 5 mg PO Q6H PRN 3 Days #12 tablet MDD 5 12/16/19
[2019-12-17] MEDS: HEPARIN NA (PORCINE) 5,000 UNITS/ML 1ML VIAL SQ SCH (09:14)
[2019-12-17 10:14] VITALS: BP 138/73; PULSE 101; TEMP 98.2
[2019-12-17 10:35] LABS: ANISOCYTOSIS 0; MACROCYTOSIS 0; PLATELET ESTIMATE NORMAL
== END 2019-12-17 12:40 | disposition home or self-care (01) | DRG 540 ==
LOC: JDEL 14:15 → JLDR 14:50 → J3W 18:45
PROVIDERS: ADMIT Student in an Organized Health Care Education/Training Program; ATTEND Student in an Organized Health Care Education/Training Program
PROC: 10D00Z1 Extraction of Products of Conception, Low, Open Approach (ICD-10-PCS; principal; 2019-12-14)
DX: O10.92 Unspecified pre-existing hypertension complicating childbirth (principal); O36.8330 Maternal care for abnormalities of the fetal heart rate or rhythm, third trimester, not applicable or unspecified; O99.214 Obesity complicating childbirth; O41.1230 Chorioamnionitis, third trimester, not applicable or unspecified; Z3A.39 39 weeks gestation of pregnancy; Z37.0 Single live birth
CPT/HCPCS: 36415; 36600; 80048; 80307; 82803; 82977; 83010; 84450; 84460; 84550; 85025; 85044; 85610; 85730; 86593; 86850; 86900; 86901; 88307-TC; J1644